=== PATIENT | male | born 1965 | race Caucasian/White ===

== ENCOUNTER 2020-04-14 08:16 | Outpatient (NON) | payer OTHER, SELFPAY ==
[2020-04-14 19:42] LABS: SARS-CoV-2 RNA PCR Negative
== END 2020-04-14 08:17 ==
LOC: ANHCOVIDDT 08:17
PROVIDERS: PCP Family Medicine; Visit Provider Internal Medicine
DX: R68.89 Other general symptoms and signs (principal); Z20.822 Contact with and (suspected) exposure to COVID-19
CPT/HCPCS: C9803; U0003